=== PATIENT | female | born 1960 | race African-American/Black ===

== ENCOUNTER 2017-01-13 11:32 | Emergency (ER) | payer MEDICAID ==
[~2017-01-13] VITALS: Ht 157.5 cm; Wt 72.1 kg
[~2017-01-13 11:32] MED LIST: ABILIFY20 MG ORAL; GABAPENTIN100 MG ORAL; IBUPROFEN800 MG ORAL
[2017-01-13] MEDS ORDERED: Ketorolac 30mg Inj IM ONE (12:00)
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
[2017-01-13] MEDS ORDERED: NAPROXEN500 M2 ORAL (13:07)
[2017-01-13] MEDS ORDERED: ROBAXIN-750750 MG PO (13:07)
[2017-01-13 13:10] VITALS: BP 145/89
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
== END 2017-01-13 13:10 | disposition home or self-care (01) ==
LOC: EMR 12:50
DX: S16.1XXA Strain of muscle, fascia and tendon at neck level, initial encounter (principal); M54.5 Low back pain; M62.830 Muscle spasm of back; Z88.6 Allergy status to analgesic agent; V43.52XA Car driver injured in collision with other type car in traffic accident, initial encounter; Y92.410 Unspecified street and highway as the place of occurrence of the external cause; Y99.8 Other external cause status
CPT/HCPCS: 72040; 96372; 99284; J1885

== ENCOUNTER 2017-07-02 14:20 | Emergency (ER) | payer MEDICAID, OTHER ==
[~2017-07-02] VITALS: Ht 162.6 cm; Wt 72.6 kg
[~2017-07-02 14:20] MED LIST changes: +NAPROXEN500 M2 ORAL; +ROBAXIN-750750 MG PO
[2017-07-02] MEDS ORDERED: NS Irrig 1000ml 1,000 ML IRRIG ONE (14:30)
[2017-07-02] MEDS ORDERED: Methocarbamol 750mg tab ORAL ONE (14:30)
[2017-07-02 14:40] VITALS: BP 145/74
[2017-07-02] MEDS ORDERED: ROBAXIN-750750 MG PO (14:49)
[2017-07-02] MEDS ORDERED: IBUPROFEN600 MG ORAL (14:49)
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
== END 2017-07-02 14:40 ==
LOC: EDBD 14:20 → EMR 14:33
DX: M62.838 Other muscle spasm (principal); Z88.5 Allergy status to narcotic agent
CPT/HCPCS: 99284

== ENCOUNTER 2017-07-08 10:27 | Emergency (ER) | payer MEDICAID, OTHER ==
[~2017-07-08] VITALS: Ht 157.5 cm; Wt 70.8 kg
[~2017-07-08 10:27] MED LIST changes: +IBUPROFEN600 MG ORAL
[2017-07-08 10:37] VITALS: BP 124/87
[2017-07-08] MEDS ORDERED: ROBAXIN-750750 MG PO (13:17)
[2017-07-08 13:27] VITALS: BP 132/89
--- NOTE | 2017-07-10 14:44 | Emergency Room Report ---
History of Present Illness General Chief Complaint: General Complaint Source: Patient Present Illness HPI The patient's 57-year-old female who presented after increased salivation and as well as neck discomfort. Patient stated that she had prior history of neck muscle spasms. Patient stated that she had been having salivation since recent incarceration. Patient denies any recent trauma. She not been vomiting or having diarrhea. She denies any chest pain. Patient had prior history of cervical arthritis.She denies any chest pain or exertional symptoms. Allergies: Coded Allergies: CODEINE (Unverified Allergy, Intermediate, Hives, 02/13/15) Patient History Past Medical History: see triage record Reviewed Nursing Documentation: PMH: Agreed, PSxH: Agreed Nursing Documentation-PMH Past Medical History: No History, Except For Hx Cardiac Problems: No - ringworm Hx Neurological Problems: No Review of Systems All Other Systems: negative except mentioned in HPI Physical Exam Vital Signs Date Time Temp Pulse Resp B/P (MAP) Pulse Ox O2 Delivery O2 Flow Rate FiO2 07/08/17 10:37 98.8 83 20 124/87 97 Room Air General Appearance: well appearing, no apparent distress, alert, GCS 15 Head: normocephalic, atraumatic ENT: hearing grossly normal, normal voice Neck: full range of motion, supple Respiratory: chest non-tender, lungs clear, no respiratory distress, speaking full sentences Musculoskeletal: no calf tenderness Neurologic: normal gait Psychiatric: mood/affect normal Skin: no rash Medical Decision Making Diagnostic Impression: Primary Impression: Muscle spasm ER Course Patient presented for neck pain. Differential diagnosis included vertebral artery dissection, myocardial infarction, cervical fracture, arthritis, spondylolithises. Patient's benign exam and does not appear to require any further imaging or laboratory testing at this time. patient given prescription for Robaxin. The patient is advised to follow up with primary care doctor in 1-2 days. Patient is advised to return if any worsening condition or if any changes in status that are concerning. Last Vital Signs Date Time Temp Pulse Resp B/P (MAP) Pulse Ox O2 Delivery O2 Flow Rate FiO2 07/08/17 13:27 98.8 76 19 132/89 99 Room Air Status: improved Disposition: HOME, SELF-CARE Condition: Stable Scripts Methocarbamol* (ROBAXIN-750*) 750 Mg Tablet 750 MG PO TID, #30 TAB 0 Refills Prov: Abhinav Talamantes 07/08/17 Patient Instructions: Muscle Pain, Adult Abhinav Talamantes Jul 10, 2017 14:44
== END 2017-07-08 13:27 | disposition home or self-care (01) ==
LOC: EMR 11:47
DX: M62.838 Other muscle spasm (principal); M54.2 Cervicalgia; Z88.6 Allergy status to analgesic agent
CPT/HCPCS: 99283

== ENCOUNTER 2018-03-22 13:27 | Emergency (ER) | payer MEDICAID ==
[~2018-03-22] VITALS: Ht 157.5 cm; Wt 68.9 kg
[2018-03-22 14:10] VITALS: BP 136/86
[2018-03-22] MEDS ORDERED: Ketorolac 60mg Inj IM ONE (14:30)
--- NOTE | 2018-03-22 16:38 | Emergency Room Report ---
History of Present Illness General Chief Complaint: Back Injury Source: Patient, Medical Record Present Illness HPI 57-year-old female presents emergency department complaining of 10 out of 10 in severity pain to the sacral spine, left hip and left knee status post mechanical fall 3 days ago. Patient states she was evaluated at [place] emergency department and discharged with [id number] medications. Patient states that she continues to have moderate pain and is worried that she has a fracture. Patient denies neck pain or hitting her head. Patient denies loss of consciousness. Patient denies new trauma or fall since initial incident. Denies numbness tingling or loss of sensation or gross motor movements of the extremities, incontinence of bowel or bladder. Denies CP, Palpitations, LOC, AMS , dizziness, Changes in Vision, weakness or a sudden severe headache. Allergies: Coded Allergies: CODEINE (Unverified Allergy, Intermediate, Hives, 02/13/15) Patient History Past Medical History: see triage record Past Surgical History: none Pertinent Family History: none Immunizations: UTD Reviewed Nursing Documentation: PMH: Agreed; PSxH: Agreed Nursing Documentation-PMH Past Medical History: No History, Except For Hx Cardiac Problems: No - ringworm Hx Neurological Problems: No Review of Systems All Other Systems: negative except mentioned in HPI Physical Exam Vital Signs Date Time Temp Pulse Resp B/P (MAP) Pulse Ox O2 Delivery O2 Flow Rate FiO2 03/22/18 13:44 98.1 92 18 136/86 97 Room Air 98.1 Sp02 EP Interpretation: reviewed, normal General Appearance: no apparent distress, alert, GCS 15, non-toxic Head: normocephalic, atraumatic Eyes: bilateral eye normal inspection, bilateral eye PERRL ENT: hearing grossly normal, normal voice Neck: full range of motion, no bony tend Respiratory: lungs clear, normal breath sounds, speaking full sentences Cardiovascular #1: regular rate, rhythm Musculoskeletal: back normal, gait/station normal - mildly compensatory., normal range of motion, tender - Tenderness to palpation to the sacrum, lateral left hip and anterior left knee. Full range of motion no obvious laxity. No palpated deformities. Neurologic: alert, oriented x3, responsive, motor strength/tone normal, sensory intact, speech normal, grossly normal Psychiatric: judgement/insight normal Skin: normal color, no rash, warm/dry, well hydrated Medical Decision Making PA Attestation Dr. Snell is my supervising Physician whom patient management has been discussed with. Diagnostic Impression: Primary Impression: Contusion Qualified Codes: S70.02XA - Contusion of left hip, initial encounter Additional Impressions: Sacral pain Left hip pain Left knee pain Qualified Codes: M25.562 - Pain in left knee ER Course 57-year-old female presents emergency department complaining of 10 out of 10 in severity pain to the sacral spine, left hip and left knee status post mechanical fall 3 days ago. Patient states she was evaluated at [place] emergency department and discharged with [id number] medications. Patient states that she continues to have moderate pain and is worried that she has a fracture. Patient denies neck pain or hitting her head. Patient denies loss of consciousness. Patient denies new trauma or fall since initial incident. Denies numbness tingling or loss of sensation or gross motor movements of the extremities, incontinence of bowel or bladder. Denies CP, Palpitations, LOC, AMS , dizziness, Changes in Vision, weakness or a sudden severe headache. Ddx considered but are not limited to Fracture, dislocation, contusion, Sprain/ Strain/Spasm. Vital signs: are WNL, pt. is afebrile H&PE are most consistent with musculoskeletal injury will perform imaging to r/ o fractures/dislocations. ORDERS: - X-ray's ( Sacrum, Left Hip, and Left Knee) - negative for fx, Dislocation, or significant soft tissue injury, per preliminary read in ED, and signed by ALF Snider, my supervising physician has reviewed, and agrees with my interpretation. ED INTERVENTIONS: - Pain medication by mouth -Lidoderm patch -Johnathan wrap applied to the left knee by supply tech. Pt. remains neurovascularly intact. DISCHARGE: At this time pt. is stable for d/c to home. Will provide printed patient care instructions, and any necessary prescriptions. Care plan and follow up instructions have been discussed with the patient prior to discharge. Other X-Ray Diagnostic Results Other X-Ray Diagnostic Results #1: X-Ray ordered: Left hIP # of Views/Limited Vs Complete: 2 View Indication: Pain EP Interpretation: Yes PA Xray: Interpretation reviewed, by supervising MD, and agrees with findings. Interpretation: no dislocation, no soft tissue swelling, no fractures Impression: No acute disease Electronically Signed by: Elizabeth Snider PA-C Other X-Ray Diagnostic Results #2: X-Ray ordered: Left Knee # of Views/Limited Vs Complete: 3 View Indication: Pain EP Interpretation: Yes ALF Xray: Interpretation reviewed, by supervising MD, and agrees with findings. Interpretation: no dislocation, no soft tissue swelling, no fractures Impression: No acute disease Electronically Signed by: Elizabeth Snider PA-C Other X-Ray Diagnostic Results #3: X-Ray ordered: Sacrum and coccyx # of Views/Limited Vs Complete: 3 View Indication: Pain EP Interpretation: Yes ALF Xray: Interpretation reviewed, by supervising MD, and agrees with findings. Interpretation: no dislocation, no soft tissue swelling, no fractures Electronically Signed by: Elizabeth Snider PA-C Last Vital Signs Date Time Temp Pulse Resp B/P (MAP) Pulse Ox O2 Delivery O2 Flow Rate FiO2 03/22/18 15:03 98.1 03/22/18 14:10 92 18 136/86 97 Room Air Disposition: HOME, SELF-CARE Condition: Stable Scripts Acetaminophen* (TYLENOL EXTRA STRENGTH*) 500 Mg Tablet 500 MG ORAL Q6H, #20 TAB 0 Refills Prov: Elizabeth Snider 03/22/18 Methocarbamol* (ROBAXIN*) 500 Mg Tablet 1000 MG PO TID for 5 Days, #15 TAB 0 Refills Prov: Elizabeth Snider 03/22/18 Lidocaine (Lidoderm) 1 Each Adh..patch 1 PATCH TOPIC DAILY, #30 PATCH 0 Refills Patch(es) may remain in place for up to 12 hours in any 24-hour period. Prov: Elizabeth Snider 03/22/18 Referrals: [facility] (PCP) Patient Instructions: Back Pain, Adult, Contusion, [id number] Additional Instructions: Take medications as directed. Follow up with a Primary Care Provider in 3-5 days, even if your symptoms have resolved. --Please review list of primary care clinics, if you do not already have a primary care provider Return sooner to ED if new symptoms occur, or current symptoms become worse. Do not drink alcohol, drive, or operate heavy machinery while taking Tramadol as this may cause drowsiness. - Please note that this Emergency Department Report was dictated using [employer] wrapper tender automatic technology software, occasionally this can lead to erroneous entry secondary to interpretation by the dictation equipment. Elizabeth Snider Mar 22, 2018 16:38
[2018-03-22] MEDS ORDERED: LIDODERM700 M1 TOPIC (16:40)
[2018-03-22] MEDS ORDERED: TYLENOL EXTRA500 MG ORAL (16:40)
[2018-03-22] MEDS ORDERED: ROBAXIN500 MG PO (16:40)
--- NOTE | 2018-03-22 16:47 | Diagnostic Imaging Report ---
Indication: Reason For Exam: PAIN Technique: 3 views of the left knee Comparison: None Findings: No acute fractures. No dislocations. The joint spaces are preserved. No definite effusion Impression: No acute process
--- NOTE | 2018-03-22 16:50 | Diagnostic Imaging Report ---
Indication: Pain, status post fall Technique: 2 views of the left hip Comparison: none Findings: No acute fractures. No dislocations. The joint spaces are preserved. Impression: No acute process
[2018-03-22 17:05] VITALS: BP 140/80
[2018-03-22 17:06] VITALS: BP 140/80
--- NOTE | 2018-03-22 17:21 | Diagnostic Imaging Report ---
Indication: Pain, status post fall Technique: 3 views of the sacrum and coccyx Comparison: Findings: No acute fractures. Sacroiliac joint spaces appear unremarkable Impression: Negative
== END 2018-03-22 17:05 | disposition home or self-care (01) ==
LOC: EMR 15:14
DX: S70.02XA Contusion of left hip, initial encounter (principal); M25.562 Pain in left knee; M54.5 Low back pain; Z88.6 Allergy status to analgesic agent; W01.0XXA Fall on same level from slipping, tripping and stumbling without subsequent striking against object, initial encounter; Y92.9 Unspecified place or not applicable
CPT/HCPCS: 72220; 73502; 96372; 99284

== ENCOUNTER 2018-04-28 12:57 | Emergency (ER) | payer MEDICAID ==
[~2018-04-28] VITALS: Ht 157.5 cm; Wt 68.9 kg
[~2018-04-28 12:57] MED LIST changes: +LIDODERM700 M1 TOPIC; +ROBAXIN500 MG PO; +TYLENOL EXTRA500 MG ORAL
[2018-04-28 13:04] VITALS: BP 143/92
[2018-04-28] MEDS ORDERED: BENADRYL25 MG ORAL (13:44)
[2018-04-28] MEDS ORDERED: CLARITIN10 M2 ORAL (13:44)
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
[2018-04-28 13:48] VITALS: BP 139/92
== END 2018-04-28 13:48 | disposition home or self-care (01) ==
LOC: EMR 13:25
DX: H10.9 Unspecified conjunctivitis (principal); Z88.6 Allergy status to analgesic agent
CPT/HCPCS: 99284

== ENCOUNTER 2018-05-27 08:34 | Emergency (ER) | payer MEDICAID ==
[~2018-05-27] VITALS: Ht 157.5 cm; Wt 68.0 kg
[~2018-05-27 08:34] MED LIST changes: +BENADRYL25 MG ORAL; +CLARITIN10 M2 ORAL
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
[2018-05-27 11:04] VITALS: BP 156/96
[2018-05-27 11:05] VITALS: BP 156/96
== END 2018-05-27 11:10 | disposition home or self-care (01) ==
LOC: EMR 09:27
DX: M79.602 Pain in left arm (principal); Z91.013 Allergy to seafood; Z91.018 Allergy to other foods
CPT/HCPCS: 93971; 99284

== ENCOUNTER 2018-09-24 16:12 | Emergency (ER) | payer MEDICAID ==
[~2018-09-24] VITALS: Ht 157.5 cm; Wt 68.9 kg
[2018-09-24 16:20] VITALS: BP 165/99
--- NOTE | 2018-09-24 18:17 | Diagnostic Imaging Report ---
EXAM: CT Lumbar Spine Without Intravenous Contrast CLINICAL HISTORY: TRAUMA TECHNIQUE: Axial computed tomography images of the lumbar spine without intravenous contrast. CTDI is 13.18 mGy and DLP is 350 mGy-cm. One or more of the following dose reduction techniques were used: automated exposure control, adjustment of the mA and/or kV according to patient size, use of iterative reconstruction technique. COMPARISON: No relevant prior studies available. FINDINGS: Vertebrae: No acute fracture. Discs/spinal canal/neural foramina: Facet arthropathy results in mild neural foraminal stenosis at L4-5 and L5-S1. 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 IMPRESSION: No fracture or traumatic alignment.
--- NOTE | 2018-09-24 18:21 | Diagnostic Imaging Report ---
EXAM: CT Cervical Spine Without Intravenous Contrast CLINICAL HISTORY: TRAUMA TECHNIQUE: Axial computed tomography images of the cervical spine without intravenous contrast. One or more of the following dose reduction techniques were used: automated exposure control, adjustment of the mA and/or kV according to patient size, use of iterative reconstruction technique. CTDI: 17.18 DLP: 360.74 COMPARISON: No relevant prior studies available. FINDINGS: Vertebrae: Unremarkable. No acute fracture. Discs/spinal canal/neural foramina: Disc degeneration at C3-4, C4-5, C5- 6, and C6-7. Soft tissues: Unremarkable. IMPRESSION: No fracture
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
[2018-09-24] MEDS ORDERED: METHOCARBAMOL500 M1 PO (18:38)
[2018-09-24] MEDS ORDERED: NAPROXEN500 M2 ORAL (18:38)
[2018-09-24 18:49] VITALS: BP 136/86
== END 2018-09-24 18:49 | disposition home or self-care (01) ==
LOC: EMR 17:04
DX: S16.1XXA Strain of muscle, fascia and tendon at neck level, initial encounter (principal); S39.012A Strain of muscle, fascia and tendon of lower back, initial encounter; V43.52XA Car driver injured in collision with other type car in traffic accident, initial encounter; Y92.410 Unspecified street and highway as the place of occurrence of the external cause; E27.9 Disorder of adrenal gland, unspecified; Z91.013 Allergy to seafood; Z91.018 Allergy to other foods; Z88.5 Allergy status to narcotic agent
CPT/HCPCS: 72125; 72131; 99284

== ENCOUNTER 2019-05-09 16:01 | Emergency (ER) | payer MEDICAID, OTHER ==
[~2019-05-09] VITALS: Ht 157.5 cm; Wt 68.9 kg
[~2019-05-09 16:01] MED LIST changes: +METHOCARBAMOL500 M1 PO
--- NOTE | 2019-05-09 16:03 | NUR ---
ED Nurse Note: pt not found in waiting area.
[2019-05-09] MEDS ORDERED: UNOBMED (16:16)
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
[2019-05-09 16:32] VITALS: BP 135/87
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
[2019-05-09] MEDS ORDERED: Acetaminophen 500mg (ES) tab ORAL ONE ×2 (16:45→16:46)
[2019-05-09 17:07] LABS: BASOPHILS % (AUTO) 1.1 % (0.0-2.0); EOSINOPHILS % (AUTO) 0.1 % (0.0-3.0); HEMATOCRIT 41.6 % (37.0-47.0); HEMOGLOBIN 14.2 G/DL (12.0-16.0); LYMPHOCYTES % (AUTO) 26.2 % (20.0-45.0); MEAN CORPUSCULAR VOLUME 86 FL (80-99); MONOCYTES % (AUTO) 6.8 % (1.0-10.0); NEUTROPHILS % (AUTO) 65.8 % (45.0-75.0); PLATELET COUNT 179 K/UL (150-450); RED BLOOD COUNT 4.83 M/UL (4.20-5.40); RED CELL DISTRIBUTION WIDTH 11.8 % (11.6-14.8); WHITE BLOOD COUNT 5.6 K/UL (4.8-10.8)
[2019-05-09 17:39] LABS: CHLORIDE 104 MMOL/L (98-107); POTASSIUM 4.2 MMOL/L (3.5-5.1); SODIUM 141 MMOL/L (136-145)
[2019-05-09 17:40] LABS: ALANINE AMINOTRANSFERASE 30 U/L (12-78); ANION GAP 13 mmol/L (5-15); ASPARTATE AMINO TRANSFERASE 21 U/L (15-37); BILIRUBIN,TOTAL 0.6 MG/DL (0.2-1.0); BLOOD UREA NITROGEN 11 mg/dL (7-18); CALCIUM 9.8 MG/DL (8.5-10.1); CARBON DIOXIDE 24 MMOL/L (21-32); CREATININE 1.1 MG/DL (0.55-1.30)
[2019-05-09 17:41] LABS: ALKALINE PHOSPHATASE 84 U/L (46-116); CKMB 0.7 NG/ML (0.0-3.6); CREATINE KINASE 87 U/L (26-308)
--- NOTE | 2019-05-09 17:43 | Diagnostic Imaging Report ---
Indication: Shortness of breath Technique: One view of the chest Comparison: none Findings: Lungs and pleural spaces are clear. Heart size is normal. Inspiration is suboptimal Impression: No acute process
[2019-05-09] MEDS ORDERED: IBUPROFEN600 MG ORAL (18:01)
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
--- NOTE | 2019-05-09 18:06 | NUR ---
ED Nurse Note: pt cleared to d/c per ERMD, pt discharge and aftercare instruction provided w/ prescription, education done via discussion and handout, pt advised to follow up with pcp or return to ed if changes in condition, vss, ambulatory w/ steady gait, iv d/c and id band removed, pt left w/ all belongings.
[2019-05-09 18:07] VITALS: BP 128/75
== END 2019-05-09 18:06 | disposition home or self-care (01) ==
LOC: EMR 17:10
DX: T75.4XXA Electrocution, initial encounter (principal); I10 Essential (primary) hypertension; Z88.6 Allergy status to analgesic agent; Z91.013 Allergy to seafood; Z91.018 Allergy to other foods; W86.0XXA Exposure to domestic wiring and appliances, initial encounter; Y92.009 Unspecified place in unspecified non-institutional (private) residence as the place of occurrence of the external cause
CPT/HCPCS: 36415; 71045; 80053; 82550; 82553; 84484; 85025; 93005; 99284